=== PATIENT | female | born 1985 | race Caucasian/White ===

== ENCOUNTER 2017-09-08 19:49 | Emergency (ER) | payer OTHER ==
[~2017-09-08] VITALS: Ht 167.6 cm; Wt 80.9 kg
[2017-09-08 19:54] VITALS: BP 124/76
[2017-09-08] MEDS ORDERED: ACETAMINOPHEN EXTRA STRENGTH 500 MG TAB PO ONE (20:00)
[2017-09-08] MEDS ORDERED: ACETAMINOPHEN EXTRA STRENGTH 500 MG TAB ONE (20:01)
--- NOTE | 2017-09-08 20:01 | NUR ---
PT.AMBUALTED TO ER BED 12
--- NOTE | 2017-09-08 20:10 | NUR ---
32/F CAME IN, C/O FEVER X1 DAY, PRODUCTIVE COUGH WITH LITTLE SPUTUM, CHILLS AND BODY ACHES X3 DAYS. PT REPORTS N/V X3; PT REPORTS PLEURITIC CHEST DISCOMFORT. PT DENIES SOB, DIARRHEA, DYSURIA. AOX4, AMBULATORY, RR EVEN AND UNLABORED. HX ASTHMA. NKA. ER MD DR MARROQUIN AWARE.
[2017-09-08] MEDS ORDERED: KETOROLAC 60 MG/2 ML VIAL IM ONE (20:20)
[2017-09-08] MEDS ORDERED: DEXAMETHASONE 10 MG/ML VIAL IM ONE (20:20)
[2017-09-08] MEDS ORDERED: CLINDAMYCIN 600 MG/4 ML VIAL IM ONE (20:20)
[2017-09-08 21:17] VITALS: BP 105/65
--- NOTE | 2017-09-08 21:18 | NUR ---
Patient discharged with v/s stable. Written and verbal after care instructions given and explained. Patient alert, oriented and verbalized understanding of instructions. Ambulatory with steady gait. All questions addressed prior to discharge. ID band removed. Patient advised to follow up with PMD. Rx of MOTRIN 800MG, CLEOCIN 300MG given. Patient educated on indication of medication including possible reaction and side effects. Opportunity to ask questions provided and answered.
== END 2017-09-08 21:17 | disposition home or self-care (01) ==
LOC: MED 19:49
DX: J03.80 Acute tonsillitis due to other specified organisms (principal); H66.93 Otitis media, unspecified, bilateral; J06.9 Acute upper respiratory infection, unspecified; J45.909 Unspecified asthma, uncomplicated
CPT/HCPCS: 81002; 81025; 96372; 99284; J1100; J1885; J3490

== ENCOUNTER 2018-01-09 02:54 | Emergency (ER) | payer SELFPAY ==
[~2018-01-09] VITALS: Ht 167.6 cm; Wt 79.4 kg
[2018-01-09 02:58] VITALS: BP 120/59
--- NOTE | 2018-01-09 02:58 | NUR ---
TO BED # 11 AMB, REPORT GIVEN TO XAVIER PAUL
--- NOTE | 2018-01-09 03:09 | NUR ---
PT PRESENTS TO ED WITH BROKEN NAIL OR RIGHT 3RD DIDGET. PT STATES REACHING INTO CLOSET AND BROKE HER FINGERNAIL. TIP OF FINGER NAIL BED RED WITH SCANT BLEEDING. NAIL IS LOOSE. PT STATES THROBBING INTERMITTENT PAIN 6/10. A&OX4. POSITIONED IN BED FOR COMFORT WITH HOB ELEVATED AND SIDE RAIL UP. ER MD AWARE. CONTINUE TO MONITOR.
--- NOTE | 2018-01-09 03:15 | NUR ---
FINGER CLEANSED WITH NS AND PAT DRY. PT TOLERATED PROCEDURE WELL.
[2018-01-09 04:05] VITALS: BP 119/67
== END 2018-01-09 04:07 | disposition home or self-care (01) ==
LOC: MED 02:54
DX: S61.303A Unspecified open wound of left middle finger with damage to nail, initial encounter (principal); J45.909 Unspecified asthma, uncomplicated; Z90.49 Acquired absence of other specified parts of digestive tract; W22.8XXA Striking against or struck by other objects, initial encounter; Y93.89 Activity, other specified; Y92.89 Other specified places as the place of occurrence of the external cause; Y99.8 Other external cause status
CPT/HCPCS: 99282

== ENCOUNTER 2018-01-22 22:06 | Emergency (ER) | payer SELFPAY ==
[~2018-01-22] VITALS: Ht 167.6 cm; Wt 81.6 kg
[2018-01-22 22:09] VITALS: BP 109/66
--- NOTE | 2018-01-22 22:12 | NUR ---
PT AMBULATORY TO BR THEN TO ER SATNAM IN STABLE CONDITION W/ STEADY GAIT.
--- NOTE | 2018-01-22 23:14 | NUR ---
PT AMBULATED TO ER BED 03
--- NOTE | 2018-01-22 23:27 | NUR ---
CAME IN WITH C/O LOWER ABD PAIN SINCE YESTRDAY AND GETTING WORST, WITH NAUSEA
--- NOTE | 2018-01-23 00:03 | NUR ---
Patient being evaluated by physician at bedside.
[2018-01-23] MEDS ORDERED: KETOROLAC 30 MG/ML VIAL IVP ONE (00:05)
[2018-01-23] MEDS ORDERED: cefTRIAXone 1,000 MG VIAL ONE (00:45)
--- NOTE | 2018-01-23 01:36 | NUR ---
Patient discharged with v/s stable. Written and verbal after care instructions given and explained BY DR. POE. Patient alert, oriented and verbalized understanding of instructions. Ambulatory with steady gait. All questions addressed prior to discharge. ID band removed. Patient advised to follow up with PMD. Rx of CIPRO 500MG, PYRIDIUM 200MG, given. Patient educated on indication of medication including possible reaction and side effects. Opportunity to ask questions provided and answered.
[2018-01-23 01:53] VITALS: BP 118/78
== END 2018-01-23 01:36 | disposition home or self-care (01) ==
LOC: MED 22:06
DX: N39.0 Urinary tract infection, site not specified (principal); J45.909 Unspecified asthma, uncomplicated
CPT/HCPCS: 81002; 81025; 96365; 96375; 99284; J0696; J1885